=== PATIENT | female | born 1960 | race Caucasian/White ===

== ENCOUNTER → 2018-04-20 | Outpatient (CLI) | payer OTHER | LOC: CIMAGING 16:00 | PROVIDERS: ATTEND Internal Medicine Rheumatology | DX: M79.642 Pain in left hand (principal); M77.32 Calcaneal spur, left foot; M53.3 Sacrococcygeal disorders, not elsewhere classified | CPT/HCPCS: 72202-PO; 73120-PO; 73620-PO ==